=== PATIENT | female | born 1950 | race Caucasian/White ===

== ENCOUNTER 2019-09-24 20:11 | Emergency (ER) | payer MEDICARE, BC, SELFPAY ==
--- NOTE | ~2019-09-24 | CT_ITS ---
EXAMINATION: CT brain wo con DATE: 09/24/2019 20:17 INDICATION: Sided weakness. Nonverbal. TECHNIQUE: Computed tomography (CT) of the head was performed without intravenous contrast. Sagittal and coronal reconstructions were performed. The mA was adjusted according to patient size. Iterative reconstruction technique was employed. The dose-length product was 681.00 mGy-cm. COMPARISON: None FINDINGS: 7.8 x 3.8 x 3.2 cm intraparenchymal hemorrhage in the pericallosal right frontal lobe. This exerts lo rui mass effect with inferior bowing of the corpus callosum where there is extension into the right l ateral ventricle. From the right lateral ventricle there is additional extension of a small amount of clot through the right foramen of Cook into the third ventricle. Small portion of the intraparench ymal hemorrhage crosses the midline below the falx which is deviated approximately 3 mm towards the l eft. There is however no midline shift at the level of the third ventricle. Basal cisterns remain pat ent. More subtly hyperdense small amount of subarachnoid hemorrhage seen along the medial sulci of th e bilateral frontal lobes along the falx. No acute ischemic infarction. No definitive enlargement of the ventricles. No masses identified. Ther e is mild scattered white matter hypoattenuation consistent with chronic small vessel ischemic diseas e. Changes of bilateral intraocular lens replacement. The orbits and mastoid air cells are normal. T here is complete opacification of the paranasal sinuses with central regions of increased attenuation which could represent either chronic fungal sinusitis or hemorrhage. The mastoid air cells and middl e ear cavities are clear. Intracranial calcified cerebral atherosclerosis is noted. IMPRESSION: 1. Large right frontal and parenchymal hemorrhage small portion which crosses midline with intraventr icular extension and small amount of adjacent subarachnoid hemorrhage which also crosses the midline. Dr. Koch discussed these findings with Dr. Noguera at 8:22 PM. 2. Extensive sinus disease with near complete opacification of all but a small portion of the left ma xillary sinus with central increased attenuation is likely related to chronic fungal sinusitis or les s likely hemorrhage. Reviewed, dictated and finalized at location A. NG SUPPORT SPECIALIST IMPRESSION: 1. Large right frontal and parenchymal hemorrhage small portion which crosses m idline with intraventricular extension and small amount of adjacent subarachnoi d hemorrhage which also crosses the midline. Dr. Koch discussed these findi ngs with Dr. Noguera at 8:22 PM. 2. Extensive sinus disease with near complete opacification of all but a small portion of the left maxillary sinus with central increased attenuation is likel y related to chronic fungal sinusitis or less likely hemorrhage.
--- NOTE | ~2019-09-24 | XR_ITS ---
EXAMINATION: XR chest 1V portable DATE: 09/24/2019 20:40 INDICATION: Stroke protocol. Left-sided weakness. TECHNIQUE: frontal view of the chest was obtained. COMPARISON: Chest radiograph dated 07/06/2015 FINDINGS: The lungs remain clear with no focal airspace opacities, pulmonary edema, pleural effusion or pneumot horax. Mild cardiomegaly. Atherosclerotic aorta. Stenting of a vessel at the right axilla and proxima l right upper arm. IMPRESSION: 1. Cardiomegaly. No acute cardiopulmonary disease. Reviewed, dictated and finalized at location A. NCIAL DATA ANALYST
--- NOTE | 2019-09-24 20:12 | ECG_ITS ---
Measurements Intervals [place] Rate: 65 P: 68 AL: 152 QRS: -29 QRSD: 110 T: 44 QT: 408 QTc: 426 Interpretive Statements SINUS RHYTHM BORDERLINE R WAVE PROGRESSION, ANTERIOR LEADS BORDERLINE ECG Electronically Signed On 09-25-2019 7:09:54 [employer] by Marvin Mack D.O.
--- NOTE | 2019-09-24 20:16 | ED.NEUROSD ---
HPI - Neuro Symptoms/Deficit General Chief Complaint: Suspected CVA Stated Complaint: CVA? Time Seen by Provider: 09/24/19 20:14 Source: EMS and RN notes reviewed Mode of arrival: EMS Limitations: clinical condition History of Present Illness HPI Narrative: Pt is a 69 y/o female who presents to the ED, via EMS, with c/o AMS with an unknown time of onset. Nurse was at bedside and provided the information. Pt was with her family and began to feel weak before falling. Pt was able to answer questions whenever she first arrived to the ED, but the pt cannot answer questions. Per EMS, pt was able to answer questions during transport, but the pt was groggy when responding. EMS reports that patient has a history of chronic kidney disease, dialysis dependent. Pt is taking Plavix. HPI is limited due to pt's clinical condition. Onset (ago): unknown Context: recent fall On Anticoagulants: Yes Associated symptoms: other (limited due to pt's clinical condition) Related Data Allergies Allergy/AdvReac Type Severity Reaction Status Date / Time No Known Allergies Allergy Verified 09/24/19 20:45 Review of Systems Review of Systems: Narrative: NEUROLOGIC: Reports AMS and weakness. ROS unobtainable: other (limited due to pt's clinical condition) [facility] Past Medical History Medical History (Updated 09/24/19 @ 20:50 by Thalia Noguera MD) CKD (chronic kidney disease) Dialysis patient Type II diabetes mellitus Uncontrolled hypertension Surgical History Surgical History (Updated 09/24/19 @ 20:40 by Corinna Saavedra) Renal transplant recipient Surgical history unknown Exam Narrative: Exam Narrative: GENERAL: Somnolent, arousable to verbal stimuli, no acute distress HEAD: Normocephalic, atraumatic. EYES: Pupils are pinpoint. ENT: Nares clear, no rhinorrhea or epistaxis. Mucous membranes moist. NECK: Supple. CHEST: Clear to auscultation. No respiratory distress. No use of accessory muscles to breathe, no agonal respirations. HEART: Regular rate and rhythm. No murmur heard. Normal peripheral pulses. ABDOMEN: Soft, nontender, nondistended, normal active bowel sounds. EXTREMITIES: Normal range of motion. No edema. Bilateral upper extremity fistulas. SKIN: Warm, dry, no rash. NEURO: Oriented to person. Arousable by verbal stimuli. GCS 12, [id number], left upper and lower extremity palsy, no gaze deviation, following simple commands correctly Course Consultations Consultation #1: Discussed case with Dr. Mittal ([facility]). Accepts transfer. Date: 09/24/19 Time: 20:28 Date: 09/24/19 Time: 20:32 Consultation #3: Discussed case with Dr. Rasheed ([facility] ED). Accepts admission. Vital Signs Vital signs: Vital Signs Temperature 36.3 C L 09/24/19 20:18 Pulse Rate 65 09/24/19 20:18 Respiratory Rate 26 H 09/24/19 20:18 Blood Pressure 209/87 H 09/24/19 20:18 Pulse Oximetry 98 09/24/19 20:18 Temperature 36.3 C L 09/24/19 20:18 Pulse Rate 70 09/24/19 21:15 Respiratory Rate 18 09/24/19 21:15 Blood Pressure 153/45 H 09/24/19 21:15 Pulse Oximetry 96 09/24/19 21:15 [facility] Transfer rationale: Specialty unavailable MDM - Neuro Symptoms/Deficit MDM Narrative Medical decision making narrative: Patient presented for altered mental status, found to have a large right frontal hemorrhage with intraventricular extension. Patient currently protecting her airway. Vital signs notable for extreme hypertension, please note patient was placed on a nicardipine infusion. Patient was given Keppra, Zofran, did start on mannitol infusion as she was initially alert and oriented to person, place and time for EMS, but at the time of arrival to our facility NIH stroke scale is 22. Patient family were able to confirm that she is on Plavix, they do not know any other anticoagulation. Patient will be given desmopressin as well. Patient with very mild anemia. No thrombocytopenia. She has a urinary tract infect
[2019-09-24 20:18] VITALS: BP 209/87; PULSE 65; RESP 26; TEMP 36.3; O2SAT 98
[2019-09-24 20:23] VITALS: BP 209/87; PULSE 63; RESP 25; RESP 26; O2SAT 97; O2SAT 98
[2019-09-24 20:31] LABS: Glucose Point of Care 111 (65-105)
[2019-09-24 20:34] LABS: Basophils Absolute Auto 0.1 K/mm3 (0.0-0.1); Basophils Percent Auto 0.7 % (0.2-1.2); Eosinophils Absolute Auto 0.2 K/mm3 (0-0.3); Eosinophils Percent Auto 2.2 % (0-4.4); Hematocrit 36.4 % (37.0-47.0); Hemoglobin 11.5 g/dL (12.0-15.0); Immature Granulocyte Absolute 0.04 K/mm3 (0.00-0.031); Immature Granulocyte Percent A 0.5 % (0-0.5); Lymphocytes Absolute Auto 1.64 K/mm3 (0.9-3.2); Lymphocytes Percent Auto 20.3 % (18.3-44.2); Mean Corpuscular HGB Conc 31.6 g/dl (32-36); Mean Corpuscular Hemoglobin 30.2 pg (26-34); Mean Corpuscular Volume 95.5 fl (80-100); Mean Platelet Volume 10.6 fl (7.4-10.4); Monocytes Absolute Auto 0.8 K/mm3 (0.1-0.6); Monocytes Percent Auto 10.1 % (2.6-8.5); Neutrophils Absolute Auto 5.4 K/mm3 (1.3-6.7); Neutrophils Percent Auto 66.2 % (45.5-73.1); Platelet Count Result 176 k/mm3 (150-375); Red Blood Count 3.81 M/mm3 (4.2-5.4); Red Cell Distribution Width 14.2 % (11.5-14.5); White Blood Count 8.1 K/mm3 (4.5-10.0)
[2019-09-24] MEDS: levETIRAcetam 1000MG/NACL100ML 1,000 MG/100 ML BAG 400 MG IVPB (20:36)
[2019-09-24] MEDS: niCARdipine 20 MG/200 ML 20 MG/200 ML BAG 50 MG IV CONT (20:36)
[2019-09-24] MEDS: SODIUM CHLORIDE 0.9% IV 1,000 ML 999 ML IV CONT (20:37)
[2019-09-24] MEDS: ONDANSETRON INJ 4 MG/2 ML VIAL IV PUSH (20:37)
[2019-09-24 20:40] VITALS: BP 184/74; PULSE 60; RESP 26; O2SAT 96
[2019-09-24 20:42] LABS: Add Urine Microscopic? YES; Appearance Urine Cloudy (Clear); Bacteria Urine 1+ /hpf; Bilirubin Urine Negative (Negative); Blood Urine 2+ (Negative); Color Urine Yellow (Yellow); Glucose Urine UA Negative (Negative); Ketones Urine Negative (Negative); Leukocyte Esterase Ur 3+ LEU/UL (Negative); Mucus Urine Rare /lpf; Nitrate Urine Negative (Negative); Protein Urine 1+ mg/dL (Negative); RBC Urine 51-75 /hpf (0-2); Specific Grav Ur 1.016 (1.001-1.035); Squamous Epithelial Cell Urine Occasional /hpf (Few); Urobilinogen Urine Negative mg/dL (<2.0); WBC Clumps Urine Present /HPF; WBC Urine >75 /hpf
[2019-09-24 20:46] LABS: Blood Urea Nitrogen 54 mg/dL (7-17); Calcium 9.4 mg/dL (8.4-10.2); Carbon Dioxide 22 mmol/L (22-30); Chloride 105 mmol/L (98-107); Estimated Glomerular Filt Rate 50; Glucose 111 mg/dL (65-105); Sodium 139 mmol/L (137-145)
[2019-09-24] MEDS: MANNITOL 20% 2040 ML IVPB (20:47)
[2019-09-24 20:50] VITALS: BP 111/40; PULSE 63; RESP 22; O2SAT 96
[2019-09-24] MEDS: DESMOPRESSIN ACETATE 4 MCG/ML AMP 2 MCG IV PUSH (20:57)
[2019-09-24 20:58] LABS: Troponin I < 0.012 ng/mL (0.000-0.034)
[2019-09-24 21:00] VITALS: BP 138/53; PULSE 69; RESP 18; O2SAT 95
[2019-09-24 21:15] VITALS: BP 153/45; PULSE 70; RESP 18; O2SAT 96
--- NOTE | 2019-09-24 21:17 | PC.NURSE ---
2049- Patient's BP 111/40, Cardine stopped per verbal order from Dr Noguera 2054- BP 139/43, Cardine restarted per verbal order from Dr Noguera
== END 2019-09-24 21:15 | disposition short-term general hospital (02) ==
PROVIDERS: Emergency Provider Emergency Medicine
DX: I61.8 Other nontraumatic intracerebral hemorrhage (principal); E11.22 Type 2 diabetes mellitus with diabetic chronic kidney disease; I12.0 Hypertensive chronic kidney disease with stage 5 chronic kidney disease or end stage renal disease; N18.6 End stage renal disease; Z99.2 Dependence on renal dialysis; Z94.0 Kidney transplant status; I62.9 Nontraumatic intracranial hemorrhage, unspecified; N39.0 Urinary tract infection, site not specified; R94.31 Abnormal electrocardiogram [ECG] [EKG]
CPT/HCPCS: 36415; 70450; 71045; 80048; 81001; 82948; 84484; 85025; 87077; 87086; 87088; 87186; 93005; 96365; 96368; 96375; 99291; J1953; J2405; J2597; J7030